=== PATIENT | female | born 1970 | race Caucasian/White ===

== ENCOUNTER 2018-12-16 15:15 | Emergency (ER) | payer SELFPAY ==
[~2018-12-16] VITALS: Ht 172.7 cm; Wt 59.1 kg
[2018-12-16 15:16] VITALS: BP 136/76
[2018-12-16] MEDS ORDERED: CETI10CA13 PO (15:20)
[2018-12-16] MEDS ORDERED: BACT800T5 PO (17:25)
[2018-12-16] MEDS ORDERED: BACTRIM 160MG/800MG DS TAB PO ONE (17:30)
[2018-12-16 17:34] LABS: HEMATOCRIT 42.4 % (36.0-47.0); HEMOGLOBIN 14.1 g/dl (12.0-15.5); MEAN CORPUSCULAR HEMOGLOBIN 31.6 pg (27.0-33.0); MEAN CORPUSCULAR HGB CONC 33.3 g/dl (32.0-36.5); MEAN CORPUSCULAR VOLUME 95.1 fl (80.0-96.0); PLATELET COUNT, AUTOMATED 312 10^3/uL (150-450); RED BLOOD COUNT 4.46 10^6/uL (4.00-5.40); WHITE BLOOD COUNT 8.1 10^3/uL (4.0-10.0)
[2018-12-16 18:14] LABS: ERYTHROCYTE SEDIMENTATION RATE 6 mm/hr (0-30)
== END 2018-12-16 17:48 | disposition left against medical advice (07) ==
LOC: M ED 15:15
DX: S81.801A Unspecified open wound, right lower leg, initial encounter (principal); L03.115 Cellulitis of right lower limb; X58.XXXA Exposure to other specified factors, initial encounter; Y92.9 Unspecified place or not applicable; Y93.9 Activity, unspecified; Y99.9 Unspecified external cause status; J45.909 Unspecified asthma, uncomplicated; Z72.0 Tobacco use; Z79.899 Other long term (current) drug therapy; Z53.21 Procedure and treatment not carried out due to patient leaving prior to being seen by health care provider

== ENCOUNTER → 2020-10-30 | Outpatient (CLI) | payer OTHER ==
[~2020-10-30] MED LIST: BACT800T5 PO; CETI10CA13 PO
--- NOTE | 2020-11-03 01:53 | REP ---
INDICATION: ARTHRITIS COMPARISON: None. TECHNIQUE: AP, lateral, bilateral oblique views right and left hand. FINDINGS: Right hand demonstrates periarticular sclerosis and joint space narrowing along with mild chronic subluxation and subtle spurring at the 1st metacarpophalangeal joint. Minimal periarticular sclerosis and joint space narrowing also identified at the interphalangeal joints and primarily the 2nd DIP joint. Remainder of the examination is relatively age-appropriate. No evidence for acute or healed injury. Left hand demonstrates periarticular sclerosis and minimal joint space narrowing primarily involving the interphalangeal joints as well as the 1st metacarpophalangeal joint. Remainder of the examination is essentially age-appropriate. No evidence for acute or healed injury. IMPRESSION: Mild arthritic changes (right greater than left). <Electronically signed by Jonathan Crowell > 11/03/20 0149
== END ==
LOC: M WUC 11:44
PROVIDERS: ATTEND Pediatrics
DX: M19.041 Primary osteoarthritis, right hand (principal); M19.042 Primary osteoarthritis, left hand

== ENCOUNTER → 2023-01-08 | Outpatient (CLI) | payer OTHER | LOC: M WUC 08:15 | PROVIDERS: ATTEND Physician Assistant | DX: M25.562 Pain in left knee (principal) ==

== ENCOUNTER → 2025-02-14 | Outpatient (REF) | payer OTHER ==
[2025-02-14 16:42] LABS: BASO # 0.1 10^3/uL (0.0-0.2); BASO % 1.9 % (0.0-1.0); EOS # 0.4 10^3/uL (0.0-0.5); EOS % 5.2 % (0.0-3.0); LYMPH # 2.3 10^3/uL (1.5-5.0); LYMPH % 34.2 % (24.0-44.0); MONO # 0.7 10^3/uL (0.0-0.8); MONO % 10.0 % (2.0-8.0); NEUTROPHILS # 3.3 10^3/uL (1.5-8.5); NEUTROPHILS % 48.6 % (36.0-66.0); PLATELET COUNT, AUTOMATED 361 10^3/uL (150-450)
[2025-02-14 16:46] LABS: IRON (FE) 77.0 UG/DL (50-170); PERCENT SATURATION 24.8 % (13.2-45.0)
[2025-02-14 16:49] LABS: TOTAL 25(OH) VITAMIN D 33.3 NG/ML (20.0-100.0)
== END ==
LOC: M LAB REF 16:16
PROVIDERS: ATTEND Pediatrics
DX: Z68.1 Body mass index [BMI] 19.9 or less, adult (principal); R63.6 Underweight; D50.9 Iron deficiency anemia, unspecified; E55.9 Vitamin D deficiency, unspecified; M54.10 Radiculopathy, site unspecified

== ENCOUNTER → 2025-03-09 | Outpatient (CLI) | payer OTHER | LOC: M RAD 15:48 | PROVIDERS: ATTEND Pediatrics | DX: M54.10 Radiculopathy, site unspecified (principal) ==